=== PATIENT | female | born 1995 | race Two or more races ===

== ENCOUNTER 2017-05-20 23:23 | Emergency (ER) | payer OTHER ==
[~2017-05-20] VITALS: Ht 170.2 cm; Wt 97.6 kg
[2017-05-21] MEDS ORDERED: DIPHENHYDRAMINE 50 MG/ML, 1ML ONE (00:14)
[2017-05-21] MEDS ORDERED: METOCLOPRAMIDE 5 MG/ML, 2ML ONE (00:14)
[2017-05-21] MEDS ORDERED: METOCLOPRAMIDE 5 MG/ML, 2ML IVPush ONE (00:30)
[2017-05-21] MEDS ORDERED: SODIUM CHLORIDE FLUSH 10ML SYR IVF ONE (00:30)
[2017-05-21] MEDS ORDERED: DIPHENHYDRAMINE 50 MG/ML, 1ML IVPush ONE (00:30)
[2017-05-21] MEDS ORDERED: SODIUM CHLORIDE 0.9% 1,000ML IVBOLUS ONE (00:30)
[2017-05-21 01:09] VITALS: BP 115/60
== END 2017-05-21 01:20 | disposition home or self-care (01) ==
LOC: ED 23:59
DX: R20.2 Paresthesia of skin (principal); G43.C0 Periodic headache syndromes in child or adult, not intractable
CPT/HCPCS: 70450; 93005; 96361; 96374; 96375; 99284; J1200; J2765; J7030

== ENCOUNTER 2017-09-14 16:47 | Emergency (ER) | payer OTHER ==
[~2017-09-14] VITALS: Ht 167.6 cm; Wt 101.6 kg
[2017-09-14 17:17] LABS: BASOPHILS # (AUTO) 0.05 x10^3/uL (0-0.1); BASOPHILS % (AUTO) 0 % (0-1); EOSINOPHILS # (AUTO) 0.05 x10^3/uL (0-0.4); EOSINOPHILS % (AUTO) 0 % (1-7); LYMPHOCYTES # (AUTO) 2.52 x10^3/uL (1-3.4); LYMPHOCYTES % (AUTO) 22 % (22-44); MD NO; MEAN CORPUSCULAR HEMOGLOBIN 30.9 pg (27.0-34.8); MEAN CORPUSCULAR HGB CONC 33.7 g/dL (32.4-35.8); MEAN CORPUSCULAR VOLUME 91.6 fL (80-100); MONOCYTES # (AUTO) 0.49 x10^3/uL (0.2-0.8); MONOCYTES % (AUTO) 4 % (2-9); NEUTROPHILS % (AUTO) 73 % (42-75); PLATELET COUNT 323 x10^3/uL (130-400); RED BLOOD COUNT 4.78 x10^6/uL (3.82-5.3); RED CELL DISTRIBUTION WIDTH 13.4 % (9.6-15.2)
[2017-09-14 17:26] LABS: ALANINE AMINOTRANSFERASE 20 U/L (12-78); ALBUMIN 4.1 g/dL (3.4-5.0); ANION GAP 9 mmol/L (5-15); CALCIUM 9.2 mg/dL (8.5-10.1); CHLORIDE 107 mmol/L (98-107); CREATININE 0.66 mg/dL (0.55-1.02)
[2017-09-14 17:43] LABS: ALKALINE PHOSPHATASE 63 U/L (45-117); BILIRUBIN,TOTAL 0.5 mg/dL (0.2-1.0); TOTAL PROTEIN 8.3 g/dL (6.4-8.2)
[2017-09-14 18:24] VITALS: BP 123/75
== END 2017-09-14 18:25 | disposition home or self-care (01) ==
LOC: ED 18:09
DX: O20.0 Threatened abortion (principal); Z3A.01 Less than 8 weeks gestation of pregnancy
CPT/HCPCS: 36415; 76801; 80053; 84702; 85025; 86901; 99285

== ENCOUNTER 2017-10-05 20:10 | Emergency (ER) | payer OTHER ==
[~2017-10-05] VITALS: Ht 167.6 cm; Wt 101.5 kg
[~2017-10-05 20:10] MED LIST: PRENATAL; PRENATAL VITAMIN
[2017-10-05 20:13] VITALS: BP 118/76
[2017-10-05] MEDS ORDERED: CEFD300C37 PO (20:19)
== END 2017-10-05 21:53 | disposition home or self-care (01) ==
LOC: ED 21:50
DX: O20.0 Threatened abortion (principal); O23.11 Infections of bladder in pregnancy, first trimester; O34.01 Maternal care for unspecified congenital malformation of uterus, first trimester; Q51.3 Bicornate uterus; N30.91 Cystitis, unspecified with hematuria; Z3A.01 Less than 8 weeks gestation of pregnancy
CPT/HCPCS: 76801; 99284

== ENCOUNTER 2017-12-10 22:30 | Emergency (ER) | payer OTHER ==
[~2017-12-10] VITALS: Ht 167.6 cm; Wt 103.1 kg
[~2017-12-10 22:30] MED LIST changes: +CEFD300C37 PO
[2017-12-10 23:30] LABS: CULTURE INDICATED? YES; MICROSCOPIC INDICATED
[2017-12-10 23:37] LABS: BASOPHILS # (AUTO) 0.03 x10^3/uL (0-0.1); BASOPHILS % (AUTO) 0 % (0-1); EOSINOPHILS # (AUTO) 0.04 x10^3/uL (0-0.4); EOSINOPHILS % (AUTO) 0 % (1-7); LYMPHOCYTES # (AUTO) 0.99 x10^3/uL (1-3.4); LYMPHOCYTES % (AUTO) 10 % (22-44); MD NO; MEAN CORPUSCULAR HEMOGLOBIN 31.6 pg (27.0-34.8); MEAN CORPUSCULAR HGB CONC 34.1 g/dL (32.4-35.8); MEAN CORPUSCULAR VOLUME 92.5 fL (80-100); MEAN PLATELET VOLUME 8.1 fL (7.4-10.4); MONOCYTES # (AUTO) 0.87 x10^3/uL (0.2-0.8); MONOCYTES % (AUTO) 9 % (2-9); NEUTROPHILS # (AUTO) 7.71 x10^3/uL (1.8-6.8); NEUTROPHILS % (AUTO) 80 % (42-75); PLATELET COUNT 229 x10^3/uL (130-400); RED BLOOD COUNT 4.03 x10^6/uL (3.82-5.3); RED CELL DISTRIBUTION WIDTH 14.1 % (9.6-15.2)
[2017-12-10 23:46] LABS: ALANINE AMINOTRANSFERASE 132 U/L (12-78); ALBUMIN 2.9 g/dL (3.4-5.0); ANION GAP 8 mmol/L (5-15); CHLORIDE 106 mmol/L (98-107); CREATININE 0.41 mg/dL (0.55-1.02)
[2017-12-10 23:48] LABS: ALKALINE PHOSPHATASE 61 U/L (45-117); BILIRUBIN,TOTAL 0.2 mg/dL (0.2-1.0); TOTAL PROTEIN 6.9 g/dL (6.4-8.2)
[2017-12-11] MEDS ORDERED: NITROFURANTOIN (MACROBID) 100 MG CAPSULE PO ONE
[2017-12-11] MEDS ORDERED: NITROFURANTOIN (MACROBID) 100 MG CAPSULE ONE (00:06)
[2017-12-11 00:30] VITALS: BP 120/60
[2017-12-11] MEDS ORDERED: ACETAMINOPHEN 325 MG TABLET PO ONE (01:30)
[2017-12-11] MEDS ORDERED: ACETAMINOPHEN 325 MG TABLET ONE (01:34)
== END 2017-12-11 02:04 | disposition home or self-care (01) ==
LOC: ED 23:31
DX: O23.12 Infections of bladder in pregnancy, second trimester (principal); R94.5 Abnormal results of liver function studies; Z3A.16 16 weeks gestation of pregnancy
CPT/HCPCS: 36415; 76700; 80053; 81001; 83690; 85025; 87086; 99285

== ENCOUNTER 2018-01-09 15:20 | Outpatient (CLI) | payer OTHER ==
[~2018-01-09] VITALS: Ht 170.2 cm; Wt 104.5 kg
[2018-01-09 18:14] LABS: MICROSCOPIC INDICATED
[2018-01-09] MEDS ORDERED: PREN1TAB60 PO (19:20)
== END 2018-01-09 19:39 | disposition home or self-care (01) ==
LOC: LDOP 15:20
PROVIDERS: ATTEND Student in an Organized Health Care Education/Training Program
DX: R10.11 Right upper quadrant pain (principal); O26.612 Liver and biliary tract disorders in pregnancy, second trimester; K83.1 Obstruction of bile duct; Z3A.21 21 weeks gestation of pregnancy
CPT/HCPCS: 59025; 76700; 81001; 87086; 99211; G0463

== ENCOUNTER 2018-01-18 23:25 | Outpatient (CLI) | payer OTHER ==
[~2018-01-18 23:25] MED LIST changes: +PREN1TAB60 PO
== END 2018-01-18 23:55 | disposition home or self-care (01) ==
LOC: LDOP 23:25
PROVIDERS: ATTEND Student in an Organized Health Care Education/Training Program
DX: O36.8120 Decreased fetal movements, second trimester, not applicable or unspecified (principal); Z3A.22 22 weeks gestation of pregnancy
CPT/HCPCS: 59025; 99211; G0463

== ENCOUNTER 2018-02-05 10:54 | Outpatient (CLI) | payer OTHER ==
[~2018-02-05] VITALS: Ht 170.2 cm; Wt 107.3 kg
[2018-02-05 11:31] VITALS: BP 103/59
[2018-02-05 11:31] LABS: MICROSCOPIC INDICATED
[2018-02-05] MEDS ORDERED: D5%-LACTATED RINGERS 1,000 ML IV SCH (12:00)
[2018-02-05 13:32] LABS: MICROSCOPIC NOT IND
[2018-02-05 13:39] LABS: CULTURE INDICATED? NO
== END 2018-02-05 13:56 | disposition home or self-care (01) ==
LOC: LDOP 10:54
PROVIDERS: ATTEND Student in an Organized Health Care Education/Training Program
DX: N39.0 Urinary tract infection, site not specified (principal); O36.8120 Decreased fetal movements, second trimester, not applicable or unspecified; Z3A.22 22 weeks gestation of pregnancy
CPT/HCPCS: 81001; 81003; 87086; 96360; 96361; J7121; P9612

== ENCOUNTER 2018-03-06 23:39 | Outpatient (CLI) | payer OTHER ==
[~2018-03-06] VITALS: Ht 170.2 cm; Wt 96.0 kg
[2018-03-07 02:42] LABS: CULTURE INDICATED? NO; MICROSCOPIC NOT IND
== END 2018-03-07 03:07 | disposition home or self-care (01) ==
LOC: LDOP 23:39
PROVIDERS: ATTEND Student in an Organized Health Care Education/Training Program
DX: O36.8130 Decreased fetal movements, third trimester, not applicable or unspecified (principal); Z3A.26 26 weeks gestation of pregnancy
CPT/HCPCS: 36415; 59025; 76815; 81003; 82731; 99211; G0463

== ENCOUNTER 2018-03-18 21:56 | Observation (INO) | payer OTHER ==
[2018-03-18 22:54] LABS: BASOPHILS # (AUTO) 0.04 x10^3/uL (0-0.1); BASOPHILS % (AUTO) 0 % (0-1); EOSINOPHILS % (AUTO) 0 % (1-7); LYMPHOCYTES # (AUTO) 1.34 x10^3/uL (1-3.4); LYMPHOCYTES % (AUTO) 11 % (22-44); MD NO; MEAN CORPUSCULAR HEMOGLOBIN 29.3 pg (27.0-34.8); MEAN CORPUSCULAR HGB CONC 33.2 g/dL (32.4-35.8); MEAN CORPUSCULAR VOLUME 88.3 fL (80-100); MEAN PLATELET VOLUME 8.1 fL (7.4-10.4); MONOCYTES # (AUTO) 0.82 x10^3/uL (0.2-0.8); MONOCYTES % (AUTO) 7 % (2-9); NEUTROPHILS # (AUTO) 9.78 x10^3/uL (1.8-6.8); NEUTROPHILS % (AUTO) 82 % (42-75); PLATELET COUNT 280 x10^3/uL (130-400); RED BLOOD COUNT 3.89 x10^6/uL (3.82-5.3); RED CELL DISTRIBUTION WIDTH 14.2 % (9.6-15.2)
[2018-03-18 23:02] LABS: MICROSCOPIC NOT IND
[2018-03-18 23:06] LABS: INTERNATIONAL NORMALIZED RATIO 0.97 (0.93-1.1)
== END 2018-03-19 02:10 | disposition home or self-care (01) ==
LOC: LDOP 21:56 → LDIP 23:55
PROVIDERS: ADMIT Student in an Organized Health Care Education/Training Program; ATTEND Student in an Organized Health Care Education/Training Program
DX: O9A.213 Injury, poisoning and certain other consequences of external causes complicating pregnancy, third trimester (principal); Z3A.30 30 weeks gestation of pregnancy; Y04.0XXA Assault by unarmed brawl or fight, initial encounter; Y93.89 Activity, other specified; Y92.89 Other specified places as the place of occurrence of the external cause; Y99.8 Other external cause status
CPT/HCPCS: 36415; 59025; 81003; 85025; 85460; 85610; 85730; 87086; G0378

== ENCOUNTER 2018-04-17 21:22 | Outpatient (CLI) | payer MEDICAID, OTHER ==
[~2018-04-17] VITALS: Ht 170.2 cm; Wt 127.0 kg
[2018-04-17 21:49] LABS: MICROSCOPIC NOT IND
[2018-04-17 21:52] VITALS: BP 120/56
== END 2018-04-17 23:45 | disposition home or self-care (01) ==
LOC: LDOP 21:22
PROVIDERS: ATTEND Student in an Organized Health Care Education/Training Program
DX: O36.8130 Decreased fetal movements, third trimester, not applicable or unspecified (principal); Z3A.35 35 weeks gestation of pregnancy
CPT/HCPCS: 59025; 81003; 87086; 99211; G0463

== ENCOUNTER 2018-04-21 22:37 | Outpatient (CLI) | payer SELFPAY ==
[~2018-04-21] VITALS: Ht 170.2 cm; Wt 90.9 kg
== END 2018-04-22 00:05 | disposition home or self-care (01) ==
LOC: LDOP 22:37
PROVIDERS: ATTEND Student in an Organized Health Care Education/Training Program
DX: O42.913 Preterm premature rupture of membranes, unspecified as to length of time between rupture and onset of labor, third trimester (principal); Z3A.35 35 weeks gestation of pregnancy
CPT/HCPCS: 59025; 89060; 99211; G0463; Q0114

== ENCOUNTER 2018-04-28 17:56 | Observation (INO) | payer SELFPAY ==
[~2018-04-28] VITALS: Ht 170.2 cm; Wt 111.4 kg
[2018-04-28 19:10] LABS: BASOPHILS # (AUTO) 0.03 x10^3/uL (0-0.1); BASOPHILS % (AUTO) 0 % (0-1); EOSINOPHILS # (AUTO) 0.02 x10^3/uL (0-0.4); EOSINOPHILS % (AUTO) 0 % (1-7); LYMPHOCYTES % (AUTO) 14 % (22-44); MD NO; MEAN CORPUSCULAR HEMOGLOBIN 28.7 pg (27.0-34.8); MEAN CORPUSCULAR HGB CONC 33.5 g/dL (32.4-35.8); MEAN CORPUSCULAR VOLUME 85.5 fL (80-100); MEAN PLATELET VOLUME 8.8 fL (7.4-10.4); MONOCYTES # (AUTO) 0.65 x10^3/uL (0.2-0.8); MONOCYTES % (AUTO) 6 % (2-9); NEUTROPHILS # (AUTO) 8.93 x10^3/uL (1.8-6.8); NEUTROPHILS % (AUTO) 80 % (42-75); PLATELET COUNT 268 x10^3/uL (130-400); RED BLOOD COUNT 4.24 x10^6/uL (3.82-5.3); RED CELL DISTRIBUTION WIDTH 14.7 % (9.6-15.2)
[2018-04-28 19:13] VITALS: BP 116/70
[2018-04-28 19:21] LABS: ALANINE AMINOTRANSFERASE 192 U/L (12-78); ALBUMIN 2.7 g/dL (3.4-5.0); ANION GAP 11 mmol/L (5-15); CALCIUM 8.8 mg/dL (8.5-10.1); CHLORIDE 107 mmol/L (98-107); CREATININE 0.61 mg/dL (0.55-1.02)
[2018-04-28 19:23] LABS: ALKALINE PHOSPHATASE 251 U/L (45-117); BILIRUBIN,TOTAL 0.5 mg/dL (0.2-1.0); TOTAL PROTEIN 7.4 g/dL (6.4-8.2)
[2018-04-28 19:29] LABS: MICROSCOPIC INDICATED
[2018-04-28] MEDS ORDERED: ACETAMINOPHEN 500 MG TABLET PO ONE (21:00)
[2018-04-28] MEDS ORDERED: ACETAMINOPHEN 500 MG TABLET ONE (21:06)
[2018-04-28] MEDS ORDERED: CYCLOBENZAPRINE 10 MG TABLET PO PRN (22:00)
[2018-04-28 22:44] LABS: ALBUMIN 2.7 g/dL (3.4-5.0); BILIRUBIN, DIRECT 0.2 mg/dL (0.1-0.2)
[2018-04-28 22:46] LABS: BILIRUBIN,INDIRECT 0.4 mg/dL (0.0-2.0); BILIRUBIN,TOTAL 0.6 mg/dL (0.2-1.0); TOTAL PROTEIN 7.2 g/dL (6.4-8.2)
== END 2018-04-29 00:15 | disposition home or self-care (01) ==
LOC: LDOP 17:56 → LDIP 19:45
PROVIDERS: ADMIT Student in an Organized Health Care Education/Training Program; ATTEND Student in an Organized Health Care Education/Training Program
DX: O26.613 Liver and biliary tract disorders in pregnancy, third trimester (principal); K80.20 Calculus of gallbladder without cholecystitis without obstruction; O26.893 Other specified pregnancy related conditions, third trimester; M54.5 Low back pain; R74.0 Nonspecific elevation of levels of transaminase and lactic acid dehydrogenase [LDH]; Z3A.36 36 weeks gestation of pregnancy
CPT/HCPCS: 36415; 59025; 76700; 80053; 80074; 80076; 81001; 82570; 83690; 84156; 85025; 87086; G0378

== ENCOUNTER 2018-05-05 11:48 | Outpatient (CLI) | payer SELFPAY ==
[~2018-05-05] VITALS: Ht 170.2 cm; Wt 112.7 kg
[2018-05-05 12:12] VITALS: BP 111/67
[2018-05-05 12:42] LABS: MICROSCOPIC INDICATED
[2018-05-05 12:48] LABS: CREATININE,URINE RANDOM 96.5 mg/dL
[2018-05-05] MEDS ORDERED: ACETAMINOPHEN 325 MG TABLET ONE (12:59)
[2018-05-05] MEDS ORDERED: ACETAMINOPHEN 325 MG TABLET PO ONE (13:00)
[2018-05-05 13:07] LABS: BASOPHILS # (AUTO) 0.03 x10^3/uL (0-0.1); BASOPHILS % (AUTO) 0 % (0-1); EOSINOPHILS % (AUTO) 0 % (1-7); LYMPHOCYTES # (AUTO) 1.16 x10^3/uL (1-3.4); LYMPHOCYTES % (AUTO) 15 % (22-44); MD NO; MEAN CORPUSCULAR HEMOGLOBIN 28.1 pg (27.0-34.8); MEAN CORPUSCULAR HGB CONC 32.6 g/dL (32.4-35.8); MONOCYTES # (AUTO) 0.61 x10^3/uL (0.2-0.8); MONOCYTES % (AUTO) 8 % (2-9); NEUTROPHILS # (AUTO) 5.79 x10^3/uL (1.8-6.8); NEUTROPHILS % (AUTO) 76 % (42-75); PLATELET COUNT 271 x10^3/uL (130-400); RED BLOOD COUNT 4.03 x10^6/uL (3.82-5.3); RED CELL DISTRIBUTION WIDTH 15.4 % (9.6-15.2)
[2018-05-05 13:19] LABS: ALANINE AMINOTRANSFERASE 232 U/L (12-78); ALBUMIN 2.4 g/dL (3.4-5.0); ANION GAP 8 mmol/L (5-15); CALCIUM 8.7 mg/dL (8.5-10.1); CHLORIDE 110 mmol/L (98-107); CREATININE 0.46 mg/dL (0.55-1.02)
[2018-05-05 13:21] LABS: ALKALINE PHOSPHATASE 269 U/L (45-117); BILIRUBIN,TOTAL 0.4 mg/dL (0.2-1.0); TOTAL PROTEIN 6.9 g/dL (6.4-8.2)
[2018-05-05] MEDS ORDERED: ACET325T26 PO (14:27)
== END 2018-05-05 15:00 | disposition home or self-care (01) ==
LOC: LDOP 11:48
PROVIDERS: ATTEND Student in an Organized Health Care Education/Training Program
DX: O13.3 Gestational [pregnancy-induced] hypertension without significant proteinuria, third trimester (principal); Z3A.37 37 weeks gestation of pregnancy
CPT/HCPCS: 36415; 59025; 80053; 81001; 82570; 84156; 84550; 85025; 99211; G0463

== ENCOUNTER 2018-05-15 16:00 | Inpatient (IN) | payer MEDICAID, OTHER ==
[~2018-05-15] VITALS: Ht 170.2 cm; Wt 90.9 kg
[~2018-05-15 16:00] MED LIST changes: +ACET325T26 PO
[2018-05-15] MEDS ORDERED: D5%-LACTATED RINGERS 1,000 ML IV SCH (16:07)
[2018-05-15] MEDS ORDERED: OXYTOCIN 30U/ 0.9% NaCL 500ML 500 ML IV ONE (16:07)
[2018-05-15] MEDS: LACTATED RINGERS 1,000 ML IV SCH ×2 (16:21→20:40)
[2018-05-15] MEDS ORDERED: SODIUM CITRATE/CITRIC ACID 30 ML UDC PO PRN (16:30)
[2018-05-15] MEDS ORDERED: METOCLOPRAMIDE 5 MG/ML, 2ML IVPush PRN (16:30)
[2018-05-15] MEDS ORDERED: ONDANSETRON 2MG/ML, 2ML IVPush PRN (16:30)
[2018-05-15] MEDS ORDERED: FENTANYL PF 100 MCG/2ML IV PRN (16:30)
[2018-05-15] MEDS ORDERED: TERBUTALINE 1 MG/ML, 1ML IVPush PRN (16:30)
[2018-05-15] MEDS ORDERED: FENTANYL PF 100 MCG/2ML IVPush PRN (16:30)
[2018-05-15 16:43] LABS: BASOPHILS # (AUTO) 0.01 x10^3/uL (0-0.1); BASOPHILS % (AUTO) 0 % (0-1); EOSINOPHILS # (AUTO) 0.02 x10^3/uL (0-0.4); EOSINOPHILS % (AUTO) 0 % (1-7); LYMPHOCYTES # (AUTO) 1.24 x10^3/uL (1-3.4); LYMPHOCYTES % (AUTO) 16 % (22-44); MD NO; MEAN CORPUSCULAR HEMOGLOBIN 28.1 pg (27.0-34.8); MEAN CORPUSCULAR VOLUME 85.2 fL (80-100); MEAN PLATELET VOLUME 9.3 fL (7.4-10.4); MONOCYTES # (AUTO) 0.52 x10^3/uL (0.2-0.8); MONOCYTES % (AUTO) 7 % (2-9); NEUTROPHILS # (AUTO) 5.79 x10^3/uL (1.8-6.8); NEUTROPHILS % (AUTO) 76 % (42-75); PLATELET COUNT 258 x10^3/uL (130-400); RED BLOOD COUNT 4.15 x10^6/uL (3.82-5.3); RED CELL DISTRIBUTION WIDTH 15.5 % (9.6-15.2)
[2018-05-15 16:46] VITALS: BP 100/56
[2018-05-15 16:51] LABS: ALANINE AMINOTRANSFERASE 282 U/L (12-78); ALBUMIN 2.6 g/dL (3.4-5.0); ANION GAP 9 mmol/L (5-15); CHLORIDE 109 mmol/L (98-107)
[2018-05-15 16:53] LABS: ALKALINE PHOSPHATASE 289 U/L (45-117); BILIRUBIN,TOTAL 0.6 mg/dL (0.2-1.0); TOTAL PROTEIN 7.1 g/dL (6.4-8.2)
[2018-05-15 16:56] LABS: INTERNATIONAL NORMALIZED RATIO 0.92 (0.93-1.1); PROTHROMBIN TIME 9.8 Seconds (9.6-11.5)
[2018-05-15] MEDS ORDERED: OXYTOCIN 30U/ 0.9% NaCL 500ML 500 ML ONE (17:02)
[2018-05-15] MEDS ORDERED: NEWBORN KIT ONE (17:02)
[2018-05-15] MEDS ORDERED: MISOPROSTOL 200 MCG TABLET ONE (17:02)
[2018-05-15] MEDS ORDERED: LIDOCAINE/PF 1%, 30ML ONE (17:02)
[2018-05-15] MEDS ORDERED: FENTANYL PF 100 MCG/2ML ONE (21:57)
[2018-05-16] MEDS: LACTATED RINGERS 1,000 ML IV SCH ×4 (04:23→18:41)
[2018-05-16] MEDS ORDERED: OXYTOCIN 30U/ 0.9% NaCL 500ML 500 ML IV PRN (07:19)
[2018-05-16 07:51] VITALS: BP 117/56
[2018-05-16] MEDS ORDERED: FENTANYL PF 100 MCG/2ML ONE (09:57)
[2018-05-16 17:08] VITALS: BP 129/75
[2018-05-16 17:32] LABS: AMPHETAMINE SCREEN, URINE Negative (Negative); BARBITURATE SCREEN, URINE Negative (Negative); BENZODIAZEPINE SCREEN, URINE Negative (Negative); CANNABINOID SCREEN, URINE Negative (Negative); COCAINE SCREEN, URINE Negative (Negative); METHADONE SCREEN, URINE Negative (Negative); OPIATE SCREEN, URINE Negative (Negative)
[2018-05-16] MEDS ORDERED: FENTANYL/BUPIV./NS/PF 250 ML EPIDCONT SCH (17:37)
[2018-05-16] MEDS ORDERED: FENTANYL PF 500 MCG, BUPIVACAINE/PF 0.5%, 30ML 62.5 ML in SODIUM CHLORIDE 0.9% 177.5 ML EPIDCONT SCH (18:00)
[2018-05-16] MEDS ORDERED: BUPIVACAINE 0.25% ONE (18:04)
[2018-05-16] MEDS ORDERED: FENTANYL/BUPIV./NS/PF 250 ML EPIDCONT ONE (18:07)
[2018-05-16] MEDS ORDERED: LIDOCAINE 1%, 20ML ONE (18:07)
[2018-05-16] MEDS ORDERED: LIDOCAINE/PF 1.5%-EPI 1:200K, 30ML ONE (18:07)
[2018-05-17] MEDS ORDERED: ACETAMINOPHEN 325 MG TABLET ONE (00:09)
[2018-05-17] MEDS ORDERED: ACETAMINOPHEN 325 MG TABLET PO PRN ×2 (00:30→04:30)
[2018-05-17] MEDS ORDERED: OXYTOCIN 30U/ 0.9% NaCL 500ML 500 ML ONE (03:12)
[2018-05-17] MEDS ORDERED: IBUPROFEN 600 MG TABLET ONE (03:12)
[2018-05-17] MEDS ORDERED: CEFAZOLIN PMX 1GM/50ML 100 ML ONE (03:29)
[2018-05-17] MEDS ORDERED: CEFAZOLIN PMX 2GM/50ML 50 ML IV ONE (03:30)
[2018-05-17] MEDS ORDERED: OXYTOCIN 30U/ 0.9% NaCL 500ML 500 ML IV SCH ×2 (03:55→04:06)
[2018-05-17] MEDS ORDERED: ONDANSETRON 2MG/ML, 2ML IV PRN (04:00)
[2018-05-17] MEDS ORDERED: MISOPROSTOL 200 MCG TABLET PR PRN (04:00)
[2018-05-17] MEDS ORDERED: OXYcodone/APAP 5/325MG TABLET PO PRN ×3 (04:00→04:30)
[2018-05-17] MEDS ORDERED: CEFAZOLIN 2,000 MG in SODIUM CHLORIDE 0.9% 50 ML IV ONE (04:00)
[2018-05-17] MEDS ORDERED: METHYLERGONOVINE 0.2 MG/ML IM PRN (04:30)
[2018-05-17] MEDS ORDERED: RHOGAM FROM BLOOD BANK 1 NOTE EA IM/IV ONE (04:30)
[2018-05-17] MEDS ORDERED: DOCUSATE 100 MG CAPSULE PO PRN (04:30)
[2018-05-17] MEDS ORDERED: MEASLES,MUMPS&RUBELLA VACC/PF 0.5 ML SQ PRN (04:30)
[2018-05-17] MEDS ORDERED: IBUPROFEN 600 MG TABLET PO PRN (04:30)
[2018-05-17] MEDS ORDERED: CARBOPROST TROMETHAMINE 250 MCG/ML, 1ML IM PRN (04:30)
[2018-05-17] MEDS ORDERED: DIPH,PERTUSS(ACELL),TET VAC/PF NC IM-VACC PRN (04:30)
[2018-05-17 05:25] VITALS: BP 108/73
[2018-05-17 08:10] VITALS: BP 100/65
[2018-05-17] MEDS: DOCUSATE 100 MG CAPSULE PO PRN (08:21)
[2018-05-17] MEDS: IBUPROFEN 600 MG TABLET PO PRN ×2 (08:21→17:03)
[2018-05-17] MEDS: PRENATAL VIT/IRON/FA 1 EACH TABLET PO SCH (08:21)
[2018-05-17] MEDS ORDERED: PRENATAL VIT/IRON/FA 1 EACH TABLET PO SCH (09:00)
[2018-05-17 11:20] LABS: BASOPHILS # (AUTO) 0.01 x10^3/uL (0-0.1); BASOPHILS % (AUTO) 0 % (0-1); EOSINOPHILS # (AUTO) 0.01 x10^3/uL (0-0.4); EOSINOPHILS % (AUTO) 0 % (1-7); LYMPHOCYTES # (AUTO) 1.46 x10^3/uL (1-3.4); LYMPHOCYTES % (AUTO) 9 % (22-44); MD NO; MEAN CORPUSCULAR HEMOGLOBIN 27.7 pg (27.0-34.8); MEAN CORPUSCULAR HGB CONC 32.5 g/dL (32.4-35.8); MEAN CORPUSCULAR VOLUME 85.2 fL (80-100); MEAN PLATELET VOLUME 9.3 fL (7.4-10.4); MONOCYTES # (AUTO) 1.17 x10^3/uL (0.2-0.8); MONOCYTES % (AUTO) 7 % (2-9); NEUTROPHILS # (AUTO) 13.16 x10^3/uL (1.8-6.8); NEUTROPHILS % (AUTO) 83 % (42-75); PLATELET COUNT 222 x10^3/uL (130-400); RED BLOOD COUNT 3.94 x10^6/uL (3.82-5.3); RED CELL DISTRIBUTION WIDTH 15.2 % (9.6-15.2)
[2018-05-17 13:25] VITALS: BP 107/67
[2018-05-17 16:00] VITALS: BP 112/68
[2018-05-17 20:00] VITALS: BP 111/73
[2018-05-18] MEDS: IBUPROFEN 600 MG TABLET PO PRN ×2 (00:17→14:09)
[2018-05-18] MEDS: DOCUSATE 100 MG CAPSULE PO PRN ×2 (00:17→07:33)
[2018-05-18 00:22] VITALS: BP 116/77
[2018-05-18] MEDS: PRENATAL VIT/IRON/FA 1 EACH TABLET PO SCH (07:33)
[2018-05-18 08:40] VITALS: BP 106/67
== END 2018-05-18 19:08 | disposition home or self-care (01) | DRG 805 ==
LOC: LDIP 16:00 → 2NW 05-17 05:15
PROVIDERS: ADMIT Student in an Organized Health Care Education/Training Program; ATTEND Student in an Organized Health Care Education/Training Program
PROC: 3E033VJ Introduction of Other Hormone into Peripheral Vein, Percutaneous Approach (ICD-10-PCS; 2018-05-15)
PROC: 0U7C7ZZ Dilation of Cervix, Via Natural or Artificial Opening (ICD-10-PCS; 2018-05-15)
PROC: 10907ZC Drainage of Amniotic Fluid, Therapeutic from Products of Conception, Via Natural or Artificial Opening (ICD-10-PCS; 2018-05-16)
PROC: 10H07YZ Insertion of Other Device into Products of Conception, Via Natural or Artificial Opening (ICD-10-PCS; 2018-05-16)
PROC: 10E0XZZ Delivery of Products of Conception, External Approach (ICD-10-PCS; principal; 2018-05-17)
PROC: 0KQM0ZZ Repair Perineum Muscle, Open Approach (ICD-10-PCS; 2018-05-17)
PROC: 3E0R3BZ Introduction of Anesthetic Agent into Spinal Canal, Percutaneous Approach (ICD-10-PCS; 2018-05-17)
PROC: 00HU33Z Insertion of Infusion Device into Spinal Canal, Percutaneous Approach (ICD-10-PCS; 2018-05-17)
DX: O69.1XX0 Labor and delivery complicated by cord around neck, with compression, not applicable or unspecified (principal); K83.1 Obstruction of bile duct; Z37.0 Single live birth; O26.62 Liver and biliary tract disorders in childbirth; O76 Abnormality in fetal heart rate and rhythm complicating labor and delivery; O70.1 Second degree perineal laceration during delivery; Z3A.39 39 weeks gestation of pregnancy
CPT/HCPCS: 36415; 80053; 80074; 80307; 84550; 85025; 85610; 85730; 86850; 86900; G0378; J0690; J3010; J3490; J2590; J7120

== ENCOUNTER 2018-08-16 17:28 | Emergency (ER) | payer MEDICAID, OTHER ==
[~2018-08-16] VITALS: Ht 170.2 cm; Wt 107.0 kg
--- NOTE | 2018-08-16 18:46 | NUR ---
TO ROOM 41 Addendum: 08/16/18 at 1850 by [facility] TO ED ROOM
--- NOTE | 2018-08-16 18:50 | NUR ---
PT A&OX4, RESP EVEN & UNLABORED, SPEECH CLEAR, SKIN WNL. C/O CP -LOCATION LT UPPER CHEST RADIATING UP TO SHOULDER & LT SIDE OF NECK. STARTED LAST NOC. TOOK IBUPROFEN FOR SX - LAST DOSE 1300 TODAY W/OUT RELIEF. REPORTS RECENT RESPIRATORY ILLNESS, TINGLING UNDER LT EYE, [place]. DENIES VISUAL CHANGES, NUMBNESS/TINGLING TO EXTREMETIES, N/V. 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 LMP: 08/10/18
[2018-08-16 19:02] LABS: BASOPHILS # (AUTO) 0.04 x10^3/uL (0-0.1); BASOPHILS % (AUTO) 1 % (0-1); EOSINOPHILS # (AUTO) 0.07 x10^3/uL (0-0.4); EOSINOPHILS % (AUTO) 1 % (1-7); LYMPHOCYTES # (AUTO) 2.23 x10^3/uL (1-3.4); LYMPHOCYTES % (AUTO) 28 % (22-44); MD NO; MEAN CORPUSCULAR HEMOGLOBIN 28.8 pg (27.0-34.8); MEAN CORPUSCULAR HGB CONC 33.6 g/dL (32.4-35.8); MEAN CORPUSCULAR VOLUME 85.6 fL (80-100); MEAN PLATELET VOLUME 7.6 fL (7.4-10.4); MONOCYTES # (AUTO) 0.46 x10^3/uL (0.2-0.8); MONOCYTES % (AUTO) 6 % (2-9); NEUTROPHILS # (AUTO) 5.27 x10^3/uL (1.8-6.8); NEUTROPHILS % (AUTO) 65 % (42-75); PLATELET COUNT 370 x10^3/uL (130-400); RED BLOOD COUNT 4.34 x10^6/uL (3.82-5.3); RED CELL DISTRIBUTION WIDTH 15.8 % (9.6-15.2)
--- NOTE | 2018-08-16 19:02 | NUR ---
PT RECENTLY DELIVERED 1ST CHILD. HAS BEEN CARRYING THE CAR SEAT W/ LEFT ARM.
[2018-08-16 19:16] LABS: ANION GAP 3 mmol/L (5-15); CALCIUM 8.9 mg/dL (8.5-10.1); CHLORIDE 109 mmol/L (98-107)
[2018-08-16 19:22] LABS: CREATININE 0.52 mg/dL (0.55-1.02); TROPONIN I < 0.015 ng/mL (0.000-0.045)
--- NOTE | 2018-08-16 20:19 | NUR ---
SITTING UPRIGHT ON BED, TALKING W/ FRIEND.
[2018-08-16 21:39] VITALS: BP 118/68
== END 2018-08-16 21:42 | disposition home or self-care (01) ==
LOC: ED 21:33
DX: S46.912A Strain of unspecified muscle, fascia and tendon at shoulder and upper arm level, left arm, initial encounter (principal); G43.909 Migraine, unspecified, not intractable, without status migrainosus; X58.XXXA Exposure to other specified factors, initial encounter; Y93.89 Activity, other specified; Y92.89 Other specified places as the place of occurrence of the external cause; Y99.8 Other external cause status
CPT/HCPCS: 36415; 71045; 80048; 82040; 84484; 85025; 93005; 99284

== ENCOUNTER 2020-10-20 15:05 | Emergency (ER) | payer MEDICAID ==
[~2020-10-20] VITALS: Ht 170.2 cm; Wt 108.0 kg
--- NOTE | 2020-10-20 15:23 | NUR ---
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 UA ORDERED PER PROTOCOL AND SENT TO LAB.
[2020-10-20 15:49] LABS: MICROSCOPIC INDICATED
--- NOTE | 2020-10-20 15:53 | NUR ---
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
--- NOTE | 2020-10-20 16:01 | NUR ---
PATIENT WALKED BACK FROM LOBBY WITH CHIEF C/O RLQ PAIN THAT RADIATES TO RIGHT LOWER BACK. PATIENT STATES IT STARTED 2 HOURS AGO AND SHE IS 10 WEEKS , DENIES VAGINAL DISCHARGE OR BLEEDING. DENIES N/V/D, DENIES FEVER. NADN, VSS, CALL LIGHT WITHIN REACH.
[2020-10-20 16:05] VITALS: BP 105/59
--- NOTE | 2020-10-20 16:55 | NUR ---
PATIENT TO IMAGING.
[2020-10-20 17:26] LABS: BASOPHILS % (AUTO) 0 % (0-1); EOSINOPHILS % (AUTO) 0 % (1-7); LYMPHOCYTES % (AUTO) 12 % (22-44); MEAN CORPUSCULAR HEMOGLOBIN 29.6 pg (27.0-34.8); MEAN CORPUSCULAR HGB CONC 33.4 g/dL (32.4-35.8); MEAN PLATELET VOLUME 8.1 fL (7.4-10.4); MONOCYTES % (AUTO) 5 % (2-9); NEUTROPHILS % (AUTO) 83 % (42-75); PLATELET COUNT 265 x10^3/uL (130-400); RED BLOOD COUNT 4.17 x10^6/uL (3.82-5.3); RED CELL DISTRIBUTION WIDTH 15.2 % (9.6-15.2)
[2020-10-20 17:27] LABS: MD NO
[2020-10-20 17:37] LABS: ALBUMIN 3.4 g/dL (3.4-5.0); ANION GAP 9 mmol/L (5-15); CALCIUM 8.9 mg/dL (8.5-10.1); CHLORIDE 108 mmol/L (98-107)
--- NOTE | 2020-10-20 18:28 | NUR ---
TASK RN: Patient/Caregiver given discharge instructions and they have confirmed that they understand the instructions. Patient ambulatory with steady gait.
--- NOTE | 2020-10-20 18:35 | NUR ---
Patient given discharge instructions and they have confirmed that they understand the instructions. Patient stable and ambulatory with steady gait from ED.
== END 2020-10-20 18:35 | disposition home or self-care (01) ==
LOC: ED 18:15
DX: O26.891 Other specified pregnancy related conditions, first trimester (principal); R10.2 Pelvic and perineal pain; Z3A.10 10 weeks gestation of pregnancy
CPT/HCPCS: 36415; 76801; 80048; 81001; 82040; 84702; 85025; 87086; 99284

== ENCOUNTER 2020-12-13 18:15 | Emergency (ER) | payer MEDICAID ==
[~2020-12-13] VITALS: Ht 170.2 cm; Wt 108.4 kg
--- NOTE | 2020-12-13 18:42 | NUR ---
NAX1
--- NOTE | 2020-12-13 19:05 | NUR ---
PT PRESENTS TO ER FOR RIGHT LOWER ABDOMINAL PAIN THAT STARTED LAST NIGHT, PT NOT FEBRILE, PT NOT VOMITTING, PT STATES ITS A THROBBING TYPE OF PAIN, PT LAYING IN BED, A/OX4, ALL NEEDS IN REACH, CALL LIGHT IN REACH, NAD, PT IS 18 WEEKS
[2020-12-13 19:26] LABS: BASOPHILS % (AUTO) 0 % (0-1); EOSINOPHILS % (AUTO) 0 % (1-7); LYMPHOCYTES % (AUTO) 13 % (22-44); MEAN CORPUSCULAR HEMOGLOBIN 29.9 pg (27.0-34.8); MEAN CORPUSCULAR HGB CONC 33.7 g/dL (32.4-35.8); MONOCYTES % (AUTO) 5 % (2-9); NEUTROPHILS % (AUTO) 81 % (42-75); PLATELET COUNT 259 x10^3/uL (130-400); RED BLOOD COUNT 4.04 x10^6/uL (3.82-5.3); RED CELL DISTRIBUTION WIDTH 14.1 % (9.6-15.2)
[2020-12-13 19:38] LABS: ALANINE AMINOTRANSFERASE 25 U/L (12-78); ALBUMIN 3.1 g/dL (3.4-5.0); ANION GAP 10 mmol/L (5-15); CHLORIDE 108 mmol/L (98-107); CREATININE 0.36 mg/dL (0.55-1.02); MICROSCOPIC AUTO
[2020-12-13 19:41] LABS: ALKALINE PHOSPHATASE 65 U/L (45-117); BILIRUBIN,TOTAL 0.4 mg/dL (0.2-1.0)
[2020-12-13 20:59] VITALS: BP 130/70
== END 2020-12-13 21:01 | disposition home or self-care (01) ==
LOC: ED 18:45
DX: O23.12 Infections of bladder in pregnancy, second trimester (principal); R10.31 Right lower quadrant pain; G43.909 Migraine, unspecified, not intractable, without status migrainosus; Z3A.18 18 weeks gestation of pregnancy
CPT/HCPCS: 36415; 76815; 76857; 80053; 81001; 85025; 87086; 99285

== ENCOUNTER 2021-01-04 15:18 | Outpatient (CLI) | payer MEDICAID ==
[~2021-01-04] VITALS: Ht 170.2 cm; Wt 108.1 kg
[2021-01-04 16:47] VITALS: BP 94/57
[2021-01-04 17:20] LABS: MICROSCOPIC INDICATED
== END 2021-01-04 17:53 | disposition home or self-care (01) ==
LOC: LDOP 15:18
PROVIDERS: ATTEND Student in an Organized Health Care Education/Training Program
DX: O46.92 Antepartum hemorrhage, unspecified, second trimester (principal); Z3A.21 21 weeks gestation of pregnancy
CPT/HCPCS: 76830; 81001; 87086; 99211; G0463

== ENCOUNTER 2021-01-13 22:36 | Outpatient (CLI) | payer MEDICAID | END 2021-01-13 23:09 | disposition home or self-care (01) | LOC: LDOP 22:36 | PROVIDERS: ATTEND Student in an Organized Health Care Education/Training Program | DX: O26.892 Other specified pregnancy related conditions, second trimester (principal); L02.215 Cutaneous abscess of perineum; Z3A.23 23 weeks gestation of pregnancy | CPT/HCPCS: 99211; G0463 ==

== ENCOUNTER 2021-03-14 19:01 | Observation (INO) | payer MEDICAID ==
[~2021-03-14] VITALS: Ht 165.1 cm; Wt 118.0 kg
[2021-03-14 19:58] VITALS: BP 111/55
== END 2021-03-15 08:20 | disposition home or self-care (01) ==
LOC: LDOP 19:01 → LDIP 20:35
PROVIDERS: ADMIT Student in an Organized Health Care Education/Training Program; ATTEND Student in an Organized Health Care Education/Training Program
DX: Z04.1 Encounter for examination and observation following transport accident (principal); O99.343 Other mental disorders complicating pregnancy, third trimester; F32.9 Major depressive disorder, single episode, unspecified; Z3A.31 31 weeks gestation of pregnancy; V89.2XXA Person injured in unspecified motor-vehicle accident, traffic, initial encounter; Y93.89 Activity, other specified; Y92.410 Unspecified street and highway as the place of occurrence of the external cause
CPT/HCPCS: 59025; G0378